=== PATIENT | female | born 1985 | race Two or more races ===

== ENCOUNTER 2022-06-04 11:13 | Outpatient (CLI) | payer OTHER | END 2022-06-04 11:23 | disposition home or self-care (01) | LOC: PPH VACUNA 11:13 | PROVIDERS: ATTEND Emergency Medicine Pediatric Emergency Medicine | DX: Z23 Encounter for immunization (principal) ==

== ENCOUNTER 2025-07-16 23:08 | Emergency (ER) | payer OTHER ==
[~2025-07-16] VITALS: Ht 160 cm; Wt 60.8 kg
[~2025-07-16 23:08] MED LIST: METHOCARBAMOL500 MG PO
[2025-07-16] MEDS ORDERED: ZOLOFT25 MG PO (23:31)
[2025-07-16] MEDS ORDERED: CLONAZEPAM0.5 M1 PO (23:31)
[2025-07-16] MEDS ORDERED: ASA81 MG PO (23:31)
[2025-07-16] MEDS ORDERED: FOLIC ACID20 MG PO (23:31)
[2025-07-17] MEDS ORDERED: ALLERGY RELIEF10 M3 PO (00:04)
[2025-07-17] MEDS ORDERED: NIX59 M1 TOP (00:04)
== END 2025-07-17 00:25 | disposition home or self-care (01) ==
LOC: ER 23:09
DX: B86 Scabies (principal); Z91.040 Latex allergy status; Z88.2 Allergy status to sulfonamides; L29.9 Pruritus, unspecified